=== PATIENT | male | born 1955 | race Caucasian/White ===

== ENCOUNTER 2018-04-30 13:30 | Day surgery (SDC) | payer BC ==
[~2018-04-30] VITALS: Ht 165.1 cm; Wt 56.9 kg
[~2018-04-30 13:30] MED LIST: ASPI325 PO; ASPI325EC PO; ASPI81CH PO; ATOR20 PO; CARV3.125 PO; CEPH500 PO; CLOP75 PO; Coq-1030 MG PO; EPIPEN 2-P0.3 MG/0.3 IM; GLIP2.5ER PO; HYDACE5 PO; ISOMON30 PO; METF500 PO; METO25ER PO; Metformin HCl500 MG PO; NEBI10 PO; Nitrostat0.4 MG SL; OXYACE5T PO; PRAV20 PO; PROP10 PO; Pravachol40 MG PO; RAMI5 PO; RXHYDACE PO; Ramipril10 MG PO; TAMS.4ER PO
[2018-04-30] MEDS ORDERED: FISH OIL 1,0001 EAC1 PO (14:19)
== END 2018-04-30 15:49 | disposition home or self-care (01) ==
LOC: ORSCSDS 13:30
PROVIDERS: Internal Medicine Gastroenterology
PROC: 0DBE8ZX Excision of Large Intestine, Via Natural or Artificial Opening Endoscopic, Diagnostic (ICD-10-PCS; principal; 2018-04-30 14:45)
DX: R19.4 Change in bowel habit (principal); K57.30 Diverticulosis of large intestine without perforation or abscess without bleeding; K63.89 Other specified diseases of intestine; E11.9 Type 2 diabetes mellitus without complications; I10 Essential (primary) hypertension; Z79.899 Other long term (current) drug therapy; Z79.82 Long term (current) use of aspirin
CPT/HCPCS: 82947; 88305; J1980; J7120

== ENCOUNTER 2022-06-29 10:04 | Day surgery (SDC) | payer MEDICARE, BC ==
[~2022-06-29] VITALS: Ht 165.1 cm; Wt 55.6 kg
[~2022-06-29 10:04] MED LIST changes: +FISH OIL 1,0001 EAC1 PO
[2022-06-29] MEDS ORDERED: ROSU5 (10:27)
[2022-06-29] MEDS ORDERED: PANT20 (10:27)
== END 2022-06-29 12:29 | disposition home or self-care (01) ==
LOC: ORSCSDS 10:04
PROVIDERS: Internal Medicine Gastroenterology
PROC: 0DB98ZX Excision of Duodenum, Via Natural or Artificial Opening Endoscopic, Diagnostic (ICD-10-PCS; principal; 2022-06-29 11:15)
PROC: 0DB68ZX Excision of Stomach, Via Natural or Artificial Opening Endoscopic, Diagnostic (ICD-10-PCS; principal; 2022-06-29 11:15)
DX: K21.9 Gastro-esophageal reflux disease without esophagitis (principal); K29.70 Gastritis, unspecified, without bleeding; Z87.11 Personal history of peptic ulcer disease; E11.9 Type 2 diabetes mellitus without complications; I10 Essential (primary) hypertension; E78.5 Hyperlipidemia, unspecified; I25.10 Atherosclerotic heart disease of native coronary artery without angina pectoris; Z79.84 Long term (current) use of oral hypoglycemic drugs; Z79.899 Other long term (current) drug therapy
CPT/HCPCS: 82947; 88305; 88342; J2001; J2704; J7120

== ENCOUNTER → 2022-07-06 | Outpatient (CLI) | payer MEDICARE, BC ==
[~2022-07-06] MED LIST changes: +PANT20; +ROSU5
== END | disposition home or self-care (01) ==
LOC: LAB SHORT 10:00 → LAB 10:00
PROVIDERS: Internal Medicine Gastroenterology
DX: K92.1 Melena (principal)
CPT/HCPCS: 82710